=== PATIENT | male | born 1945 | race Caucasian/White ===

== ENCOUNTER → 2020-12-08 14:50 | Outpatient (CLI) | payer MEDICARE, SELFPAY ==
--- NOTE | ~2020-12-08 | XR_ITS ---
EXAMINATION: XR hip LT min 2V INDICATION: Left hip pain TECHNIQUE: Two views of the left hip are obtained. COMPARISON: None available FINDINGS: Bone alignment is normal. There is no fracture. There is severe osteoarthritis of the left hip. The soft tissues are unremarkable. IMPRESSION: 1. Advanced osteoarthritis without acute osseous abnormality. Reviewed, dictated and finalized at location A.
== END ==
PROVIDERS: PCP Internal Medicine; Visit Provider Nurse Practitioner
DX: M16.12 Unilateral primary osteoarthritis, left hip (principal)
CPT/HCPCS: 73502

== ENCOUNTER 2021-04-22 06:39 | Outpatient (CLI) | payer MEDICARE, SELFPAY ==
--- NOTE | 2021-04-22 | ECG_ITS ---
Measurements Intervals [place] Rate: 69 P: 60 NE: 188 QRS: 16 QRSD: 99 T: 40 QT: 389 QTc: 417 Interpretive Statements SINUS RHYTHM INCOMPLETE RIGHT BUNDLE BRANCH BLOCK BORDERLINE ECG Electronically Signed On 04-22-2021 8:15:59 SECTION HAND HELPER by Dale Pandey D.O.
[2021-04-22 08:42] LABS: Albumin Level 4.4 g/dL (3.5-5.1); Estimated Glomerular Filt Rate > 60; Glucose 87 mg/dL (65-110)
[2021-04-22 08:43] LABS: Hematocrit 42.5 % (42.0-52.0); Hemoglobin 14.8 g/dL (14.0-18.0)
== END 2021-04-22 06:40 | disposition home or self-care (01) ==
LOC: ANHLAB 06:50
PROVIDERS: PCP Internal Medicine; Visit Provider Orthopaedic Surgery
DX: Z01.818 Encounter for other preprocedural examination (principal); M16.12 Unilateral primary osteoarthritis, left hip
CPT/HCPCS: 36415; 82040; 82565; 82947; 85014; 85018; 93005

== ENCOUNTER 2021-05-04 10:00 | Outpatient (CLI) | payer MEDICARE, SELFPAY ==
[2021-05-04 11:55] LABS: Basophils Percent Auto 0.3 % (0.2-1.2); Eosinophils Absolute Auto 0.1 K/mm3 (0-0.3); Eosinophils Percent Auto 0.5 % (0-4.4); Hematocrit 41.8 % (42.0-52.0); Hemoglobin 14.2 g/dL (14.0-18.0); Immature Granulocyte Absolute 0.05 K/mm3 (0.00-0.031); Immature Granulocyte Percent A 0.5 % (0-0.5); Lymphocytes Absolute Auto 1.19 K/mm3 (0.9-3.2); Mean Corpuscular Volume 91.3 fl (80-100); Monocytes Absolute Auto 0.8 K/mm3 (0.1-0.6); Monocytes Percent Auto 8.3 % (2.6-8.5); Neutrophils Absolute Auto 7.1 K/mm3 (1.3-6.7); Neutrophils Percent Auto 77.4 % (45.5-73.1); Platelet Count Result 192 k/mm3 (150-375); Red Blood Count 4.58 M/mm3 (4.6-6.20); Red Cell Distribution Width 13.3 % (11.5-14.5); White Blood Count 9.2 K/mm3 (4.5-10.0)
[2021-05-04 12:02] LABS: Urine Cotinine NEGATIVE
== END 2021-05-04 10:01 | disposition home or self-care (01) ==
PROVIDERS: PCP Internal Medicine; Visit Provider Orthopaedic Surgery
DX: Z01.818 Encounter for other preprocedural examination (principal); M16.12 Unilateral primary osteoarthritis, left hip
CPT/HCPCS: 80307; 83036; 85025; 87081

== ENCOUNTER 2021-05-31 01:14 | Day surgery (SDC) | payer MEDICARE, SELFPAY ==
[2021-05-04 10:16] VITALS: BP 157/73; PULSE 80; RESP 18; TEMP 37.8; O2SAT 99; BMI 25.0
--- NOTE | 2021-05-04 10:35 | PC.NURSE ---
Report to the Outpatient Waiting Room, entrance under the green pavilion located off [facility], at time __8:00AM on date __05/31/21 . OR Time: __10:00AM . - You and your visitor will be asked a series of questions to screen for COVID 19 for your protection. - A mask is required within the hospital. - Only one visitor is allowed at this time. Patient visitors will be guided where to wait when not with patient. Preoperative COVID Testing Requirements: No COVID Test needed if: (proof is required; if not received patient will have Rapid Test prior to entry) - Patient has received COVID Vaccine at least 14 days prior to procedure date or - Patient has positive COVID test result within last 90 days of surgery date. COVID Test needed if above criteria is not met If not COVID vaccinated a COVID test must be conducted within 72 hours of surgery and patient is asked to isolate self from time of testing until procedure. You will go to the [facility] for your COVID testing. The [facility] Testing site is located at the corner of [address] [facility]. You will only be called if COVID results are positive and your surgeon may reschedule your elective surgery date. Patients may have clear liquids (water, carbonated beverages, clear teas, apple juice) until 3 hours prior to surgery with a maximum of 20 ounces. - No food from midnight until time of surgery - Infants may have breast milk until 4 hours before surgery, infant formula 6 hours prior to surgery. - Children will be allowed to drink immediately following surgery. If applicable, please bring a bottle or sippy cup to assist with drinking. Juice, water, soda, and popsicles are readily available. For infants on formula, please bring formula the day of surgery. Pacifiers are allowed. Take the following medications with a SIP of water the morning of surgery: __LORAZEPAM NEEDED Medications to discontinue per physician ALL VITAMINS/SUPPLEMENTS 3 DAYS PRE-OP Date to take last dose__05/27/21 Please no make-up, nail icelandic, hairspray, perfume, deodorant, or body powder the day of surgery. No jewelry (including any body piercings) or valuables the day of surgery, leave them at home. Please take a shower or bath the night before, or the morning of, surgery with an antibacterial soap. Wear comfortable, loose fitting clothing. Children are encouraged to wear pajamas. - Jewelry must be removed prior to entering the operating room. Rings and piercings that are not removed may be cut off. - The hospital will not accept responsibility for valuables. - Please leave all valuables, including medications, at home the day of surgery. If you are going home after surgery, a licensed deliver driver must drive you home. - NO public transportation without another adult. - We recommend that an adult stay with you for 24 hours following discharge. - We also recommend that you do not drive, make important decision, drink alcoholic beverages, or take any drugs that were not prescribed by your health care provider for at least 24 hours after your discharge time. For Pediatric surgeries, we recommend two adults accompany the child home (only one inside the building at this time). Follow any additional instructions given to you from your surgeon. Telephone instructions given to __PATIENT Patient advised to call surgeon office or pre surgery nurse liaison [phone] if any additional questions.
[2021-05-31] VITALS (9 sets, daily range): BP systolic 118–152; BP diastolic 52–97; PULSE 65–82; RESP 14–17; TEMP 36.1–36.8; O2SAT 99–100
--- NOTE | ~2021-05-31 | XR_ITS ---
EXAMINATION: XR hip LT min 2V DATE: 05/31/2021 13:35 INDICATION: Postoperative evaluation following left total hip arthroplasty TECHNIQUE: Anteroposterior and lateral views of the left hip were obtained. COMPARISON: 05/25/2021 FINDINGS: Interval placement of a noncemented left total hip arthroplasty which appears well seated in near benedicto tomic alignment.Acetabular component is affixed with a single screw. Expected subcutaneous gas in the postoperative bed. No fractures identified. Moderate left sacroiliac osteoarthritis. At least moder ate lower lumbar spondylosis. IMPRESSION: 1. Left total hip arthroplasty, negative for postoperative purposes. Reviewed, dictated and finalized at location A. 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
--- NOTE | 2021-05-31 07:26 | WPDHPUPDATE1 ---
History and Physical Update Update Date/Time: 05/31/21 07:26 History and Physical has been reviewed, including an updated exam of the patient. There are NO changes in the patient's condition. Risks, benefits, and alternatives have been discussed and questions answered. Patient agrees to proceed with procedure.
--- NOTE | 2021-05-31 09:05 | WPDANESEPPF ---
Anes - Initial Pre Proc Eval Procedure: Operation Date: 05/31/21 10:30 Proposed Procedures p Left Total Hip Arthroplasty - Lei Ramirez MD Date/Time: 05/31/21 09:05 Surgeon: Lei Ramirez MD Pre Op Diagnosis: primary OA left hip Patient Data Age: 75 Gender: M Height: 1.79 m Weight: 80.2 kg Last Vital Signs Temp 100.0 F H 05/04/21 10:16 Pulse 80 05/04/21 10:16 Resp 18 05/04/21 10:16 BP 157/73 H 05/04/21 10:16 Pulse Ox 99 05/04/21 10:16 Allergies Allergy/AdvReac Type Severity Reaction Status Date / Time No Known Allergies Allergy Verified 05/31/21 08:58 Home Medications Medication Instructions Recorded Confirmed Type finasteride 5 mg tablet 5 mg PO DAILY 12/07/20 05/31/21 History tadalafil 5 mg tablet 5 mg PO DAILY 12/07/20 05/31/21 History omega 6-ipt-tsh-fish oil [Fish Oil] 1 cap PO DAILY 05/04/21 05/31/21 History lorazepam 1 mg tablet 0.5 mg PO ONCE PRN #10 tablet 05/25/21 05/31/21 Rx Patient hx anesthesia problems: none Family hx anesthesia problems: none Results Review: All pre-operative results and documents have been reviewed as part of the pre-operative evaluation. [facility] Past Medical History Medical History H/O nephrolithotomy with removal of calculi Hyperlipidemia Prostatic hypertrophy Family History Family History Sibling Family history of thyroid disease Patient's sister is in good health Patient's brother is in good health Father Family history of coronary artery disease Family history of cardiovascular disease Mother Patient's mother is Social History Social History Smoking status: Never smoker Alcohol intake: current Alcohol use details: one per month Substance use: never Substance use type: does not use Living arrangements: with family Additional living arrangements comments: [facility]SE Spiritual care concerns: No Anes - Eval Final PreProcedure Day of Procedure 05/31/21 09:05 Patient weight: overweight Heart: regular rate and rhythm Lungs: clear to auscultation Airway: Mallampati scale class III Neurological: alert and oriented Last oral intake: >/= 8 hours ASA classification: III Emergent: no Anesthetic plan: proceed Anesthesia type and monitoring: general ETT and standard monitoring Results Review: All pre-operative results and documents have been reviewed as part of the pre-operative evaluation. Informed Consent: The patient's anesthetic plan and its attendant risks and benefits were discussed with the patient/family/POA. Questions were solicited and answers provided to the satisfaction of the patient/family/POA.
[2021-05-31] MEDS: ACETAMINOPHEN 500 MG TABLET 1000 MG PO (09:06)
[2021-05-31] MEDS: LACTATED RINGERS 1,000 ML 30 ML IV CONT ×2 (09:16→13:18)
[2021-05-31] MEDS: TRANEXAMIC ACID 1,000MG/ISO100 1,000 MG/100 ML BAG 200 MG IVPB (09:57)
[2021-05-31] MEDS: ceFAZolin 2 GM/D5W 50 ML 2 GM/50 ML BAG IVPB (10:52)
--- NOTE | 2021-05-31 14:54 | ADMGEN ---
This patient, Reyes Pineda, was admitted to [facility]. Patient/family oriented to hospital policies and general routines including ID bracelet, bed and alarms, visiting hours, pain management, procedures, bathroom and other care routines, personal items, smoking policy, room service/diet, and visiting hours. Information on how to activate the Rapid Response Team has been discussed. Patient/Family are encouraged to report perceived risks to care and to ask questions if they do not understand what they are told or what they should do.
[2021-05-31] MEDS: ONDANSETRON INJ 4 MG/2 ML VIAL IV PUSH ×3 (15:19→23:59)
--- NOTE | 2021-05-31 15:51 | W.PM.PROC2 ---
Procedure Note - Detailed Date of Procedure 05/31/21 Pre-op Diagnosis Primary OA left hip Post-op Diagnosis same Procedure Performed Left Total Hip Arthroplasty Surgeon Lei Ramirez MD Diesel Crane Operator Aspen Granados PA-C Anesthesia general Findings Excellent bone quality. Valgus neck angle with high anteversion. [place] acetabulum shallow with low anteversion. Posterior superior cup left uncovered. Excellent press fit obtained. Additional screw placed. Inferior cup margin parallel and just medial to transverse acetabular ligament. Description of Procedure The patient was given preoperative antibiotics. A general anesthetic was administered. The patient was carefully placed in the lateral decubitus position on the PEG board. The shoulders and hips were carefully positioned for component and leg length positioning reference. The hip was prepped and draped in the usual sterile fashion. A longitudinal incision was created over the posterior aspect of the greater trochanter. Careful dissection was brought down through the deep fascia with electrocautery. A minimally invasive optimized posterior approach to the hip was performed. The short external rotators and capsule were taken down in an L-shaped capsulotomy. The tissue was tagged for later repair using number 2 high strength suture. The femoral neck was measured and taken in situ. The femoral head was removed. The acetabulum was carefully exposed. The inferior capsule was released. The labrum was resected. The acetabulum was sequentially reamed to the intended cup size. The cup was impacted into position with excellent press-fit. Typical anatomic landmarks, including the bony contact points as well as the inferior transverse acetabular ligament were used to confirm cup positioning with preoperative templating. Attention was turned to the femur, which was carefully exposed. The hip was reamed and then broached sequentially. Excellent press-fit was obtained with the broach. The hip was trialed. Measurements were utilized, including the lesser trochanter as well as the center of the femoral head and the tip of the trochanter, and excellent assessment of the offset and leg lengths were confirmed. The real component was impacted into position. Trialing confirmed appropriate leg length and offset with soft tissue balancing as well apparent feel of the leg, both at the knee and the heel. Soft tissues were assessed using the the iliotibial band. Reduction of the posterior capsule and external rotators were also used as a secondary assessment. The hip was copiously irrigated with pulsatile lavage antibiotic solution periodically throughout the procedure. The real components were then assembled and reduced. The hip was stable throughout typical maneuvers, including extension, external rotation to 70 degrees, the position of sleep as well as flexion to 90 degrees with internal rotation past 45 degrees. The shake test confirmed stability without impingement. Osteophytes were removed as necessary. The short external rotators and capsule were repaired back to the posterior trochanter through drill holes. The deep fascia was repaired with running number 2 Quill suture, followed by 0 Stratafix suture and 2-0 Stratafix suture in the dermis. Steri-Strips were placed on the skin, followed by a sterile silver occlusive dressing. There were no complications. Meticulous hemostasis was maintained with the AquaMantys device. The patient was brought to the recovery room in stable condition. There were no complications. Implants The Accolade II hip stem, 132 degree size 4 , was utilized with excellent press-fit. The 52 mm Trident II acetabular component was impacted with excellent press-fit stability. The +2.5 , 36 mm Biolox ceramic femoral head was utilized. Estimated Blood Loss -300.0 Drains No Packing No Pathology none sent Complications No immediate complications Condition stable Disposition PACU
[2021-05-31] MEDS: FAMOTIDINE 20 MG TABLET PO (20:37)
[2021-05-31] MEDS: SODIUM CHLORIDE 0.9% IV 1,000 ML 125 ML IV CONT (20:37)
[2021-06-01] VITALS: BP 120/55; PULSE 75; RESP 15; TEMP 36.6; O2SAT 100
[2021-06-01] MEDS: oxyCODONE HCL (*CRX) 5 MG TAB IR PO (01:45)
[2021-06-01 04:24] VITALS: TEMP 36.6
[2021-06-01 05:36] LABS: Glucose Point of Care 141 mg/dl (65-105)
--- NOTE | 2021-06-01 05:51 | PC.NURSE ---
Patient transferred to chair with no complications at approximately 0520 After approximately 6 minutes this RN checked on patient to see how he was tolerating ambulation and sitting. He began slurring words and lose his color. He then stated this is what i felt like after i had my stones removed under anesthesia, i think i may pass out Patient then went unresponsive but remained in chair. Rapid Response called by this RN who stayed with the patient and obtained vitals. Initial vitals at 0528 shows a BP- 59/35 and a HR of 45. He became responsive after only 10 seconds. oil field equipment mechanic supervisor and assisting RNs returned patient to bed via 3 person assist and gait belt. ICU Charge arrived and began 500ml NS bolus. 0535- BP- 95/47 HR-50 SPO2- 100% 0539- BP-102/47 HR- 63 SPO2%- 100% Vitals continue trending improvement. Dr. Ramirez notified @ 0545 Agrees with 500 ml bolus of NS, obtain BMP & CBC, Continue to monitor closely in current bed placement vs transferring to telemetry unit.
[2021-06-01 06:01] LABS: Basophils Percent Auto 0.1 % (0.2-1.2); Hematocrit 32.2 % (42.0-52.0); Hemoglobin 11.4 g/dL (14.0-18.0); Immature Granulocyte Absolute 0.06 K/mm3 (0.00-0.031); Immature Granulocyte Percent A 0.4 % (0-0.5); Lymphocytes Absolute Auto 1.26 K/mm3 (0.9-3.2); Mean Corpuscular HGB Conc 35.4 g/dl (32-36); Mean Corpuscular Hemoglobin 31.5 pg (26-34); Mean Platelet Volume 8.9 fl (7.4-10.4); Monocytes Absolute Auto 1.6 K/mm3 (0.1-0.6); Monocytes Percent Auto 11.3 % (2.6-8.5); Neutrophils Absolute Auto 11.1 K/mm3 (1.3-6.7); Neutrophils Percent Auto 79.2 % (45.5-73.1); Platelet Count Result 177 k/mm3 (150-375); Red Blood Count 3.62 M/mm3 (4.6-6.20); Red Cell Distribution Width 12.9 % (11.5-14.5)
[2021-06-01 06:11] VITALS: BP 111/44; PULSE 73; RESP 17; TEMP 36.5; O2SAT 100
[2021-06-01 06:19] LABS: Anion Gap 8 mmol/L (8-16); Blood Urea Nitrogen 13 mg/dL (9-20); Calcium 7.7 mg/dL (8.4-10.2); Carbon Dioxide 23 mmol/L (22-30); Chloride 100 mmol/L (98-107); Estimated CRCL calculation 71 ml/min; Estimated Glomerular Filt Rate > 60; Glucose 131 mg/dL (65-110); Magnesium 1.6 mg/dL (1.6-2.3); Potassium 3.5 mmol/L (3.4-5.0); Sodium 131 mmol/L (137-145)
[2021-06-01] MEDS: ONDANSETRON INJ 4 MG/2 ML VIAL IV PUSH ×2 (06:45→11:37)
[2021-06-01] MEDS: FAMOTIDINE 20 MG TABLET PO (10:02)
[2021-06-01] MEDS: polyethylene glycoL 3350 17 GM POWD.PACK PO (10:03)
[2021-06-01] MEDS: OMEGA 3 POLYUNSAT FATTY ACIDS 1 GM CAP PO (10:03)
[2021-06-01 10:07] VITALS: BP 111/52; PULSE 70; RESP 14; TEMP 36.6; O2SAT 100
[2021-06-01] MEDS: SENNA/DOCUSATE SODIUM TABLET 2 TAB PO (11:12)
[2021-06-01 12:20] VITALS: BP 124/53
--- NOTE | 2021-06-01 12:20 | WPDANESPN ---
Anes - Prog Note Post-Op Date/Time: 06/01/21 12:20 Cardiovascular status: normal Respiratory status: normal Airway patency: baseline Mental status: baseline Post-Op hydration status: normal Vital Signs: Last Vital Signs Temp 97.9 F 06/01/21 10:07 Pulse 70 06/01/21 10:07 Resp 14 06/01/21 10:07 BP 111/52 L 06/01/21 10:07 Pulse Ox 100 06/01/21 10:07 Pain Score (VAS): 05/23 I/O: Intake & Output 05/31/21 06/01/21 06/01/21 23:59 07:59 15:59 Intake Total 200 100 Output Total 700 Balance 200 -600 Laboratory Tests 06/01/21 05:53 06/01/21 05:53 06/01/21 06/01/21 06/01/21 05:33 05:53 05:53 WBC 14.0 H RBC 3.62 L Hgb 11.4 L Hct 32.2 L MCV 89.0 MCH 31.5 MCHC 35.4 RDW 12.9 Plt Count 177 MPV 8.9 Immature Gran % (Auto) 0.4 Neut % (Auto) 79.2 H Lymph % (Auto) 9.0 L [place] % (Auto) 11.3 H Eos % (Auto) 0.0 Baso % (Auto) 0.1 L Lymph # (Auto) 1.26 [place] # (Auto) 1.6 H Eos # (Auto) 0.0 Baso # (Auto) 0.0 Abs Immat Gran (auto) 0.06 H Absolute Neuts (auto) 11.1 H Absolute Nucleated RBC 0.0 Nucleated RBC % 0.0 Sodium 131 L Potassium 3.5 Chloride 100 Carbon Dioxide 23 Anion Gap 8 BUN 13 Creatinine 0.80 Estim Creat Clear Calc 71 Estimated GFR > 60 Glucose 131 H POC Capillary Glucose 141 H Calcium 7.7 L Magnesium 1.6 Post-procedural complaints: none Patient Feedback: Patient satisfied with anesthetic care.
[2021-06-01] MEDS: FINASTERIDE 5 MG TABLET PO (12:25)
--- NOTE | 2021-06-01 12:47 | PC.NURSE ---
PER RAFAELA BETANCOURT PATIENT IS OK TO DISCHARGE WITHOUT URINATING. PATIENT IS FAMILIAR WITH URINARY RETENTION HE SEES A UROLOGIST AND HAS CATHETERS AT HOME.
--- NOTE | 2021-06-01 12:57 | PM.DS ---
DS: Admitting Diagnosis Discharge Date 06/01/21 Admitting Diagnosis OA Left hip DS: Discharge Diagnosis Discharge Diagnosis (1) Status post total hip replacement, left: Code(s): Z96.642 - Presence of left artificial hip joint Status: Acute Assessment and Plan: Postop day 1: Total hip arthroplasty. Patient tolerated procedure well. No complications. Did have a syncopal episode. This has resolved. He has an ongoing problem with urinary retention. [place] catheter was used during the procedure and was removed this am. He has catheters at home if he is unable to urinate and he will call his urologist. Pain manageable with pain medication. No numbness or tingling. We had a lengthy discussion regarding postoperative wound care, limitations, expectations, and exercises. Patient shows good understanding. Patient has had initial physical therapy and is tolerating it well. DVT prophylaxis: 81 mg baby aspirin b.i.d. for 14 days. Short frequent walks. Pain medication: Percocet. Meloxicam. Prednisone. Patient has followup appointment with Dr. Ramirez in 3 weeks DS: Summary Hospital Course Reason for hospitalization: Total hip arthroplasty Hospital Course: Patient tolerated procedure well. Has had initial PT/OT. Status at Discharge Functional status at discharge: uses cane/walker Overall status at discharge: patient is progressing back to baseline Time Spent with Patient Time attestation: Total time spent providing and/or coordinating discharge services: Exam Narrative: Thin, tall Male. Resting comfortably in chair. Wearing compression socks bilaterally. Dressing dry and intact with no drainage. Moderate swelling. No ecchymosis. No erythema. No hematoma. Range of motion limited due to pain. Calf nontender. Thigh nontender. Neurologic status intact. No varicosities. Distal pulses palpable. DS: Data Data Completed and Pending Labs on day of discharge: Labs from last 24 hours 06/01/21 06/01/21 06/01/21 05:53 05:53 05:33 WBC 14.0 H RBC 3.62 L Hgb 11.4 L Hct 32.2 L MCV 89.0 MCH 31.5 MCHC 35.4 RDW 12.9 Plt Count 177 MPV 8.9 Immature Gran % (Auto) 0.4 Neut % (Auto) 79.2 H Lymph % (Auto) 9.0 L [place] % (Auto) 11.3 H Eos % (Auto) 0.0 Baso % (Auto) 0.1 L Lymph # (Auto) 1.26 [place] # (Auto) 1.6 H Eos # (Auto) 0.0 Baso # (Auto) 0.0 Abs Immat Gran (auto) 0.06 H Absolute Neuts (auto) 11.1 H Absolute Nucleated RBC 0.0 Nucleated RBC % 0.0 Sodium 131 L Potassium 3.5 Chloride 100 Carbon Dioxide 23 Anion Gap 8 BUN 13 Creatinine 0.80 Estim Creat Clear Calc 71 Estimated GFR > 60 Glucose 131 H POC Capillary Glucose 141 H Calcium 7.7 L Magnesium 1.6 Discharge Plan Discharge Patient Disposition: Home, Self-Care Discharge Instructions: See green instruction sheet Stand Alone Forms: General Discharge Instructions Follow-up/Referrals: Aspen Granados PA [Physician Manager Income Tax] - Discharge Medications: New meloxicam 7.5 mg tablet 7.5 mg PO BID 30 Days Qty: 60 RF: 0 prednisone 5 mg tablet 5 mg PO DAILY 21 Days Qty: 21 RF: 0 aspirin 81 mg tablet,delayed release (DR/EC) 81 mg PO BID 14 Days Qty: 28 RF: 0 oxycodone-acetaminophen 5-325 mg tablet 1 - 2 tablet PO Q4-6H MDD 6 PRN (Reason: pain) Qty: 30 RF: 0 Continued tadalafil [Cialis] 5 mg tablet 5 mg PO DAILY RF: 0 finasteride 5 mg tablet 5 mg PO DAILY RF: 0 lorazepam [Ativan] 1 mg tablet 0.5 mg PO ONCE PRN (Reason: anxiety) Qty: 10 RF: 0 omega 1-qup-pyi-fish oil [Fish Oil] 1,000 mg (120 mg-180 mg) Capsule 1 cap PO DAILY RF: 0
== END 2021-06-01 15:30 | disposition home or self-care (01) ==
LOC: ANHSURGERY 13:24 → ANHSUROVER 14:16
PROVIDERS: PCP Internal Medicine; Visit Provider Orthopaedic Surgery
PROC: (CPT 27130; principal; 2021-05-31 10:30)
DX: M16.12 Unilateral primary osteoarthritis, left hip (principal); E78.5 Hyperlipidemia, unspecified; N40.0 Benign prostatic hyperplasia without lower urinary tract symptoms
CPT/HCPCS: 27130; 36415; 73502; 80048; 80307; 82948; 83036; 83735; 85025; 86850; 86900; 86901; 87081; 97110; 97116; 97161; 97165; 97530; 97535; A9270; C1776; J0131; J0171; J0690; J1100; J1885; J2250; J2270; J2405; J2704; J2710; J2795; J3010; J7030; J7120

== ENCOUNTER 2021-06-22 15:05 | Outpatient (CLI) | payer MEDICARE, SELFPAY ==
--- NOTE | ~2021-06-22 | US_ITS ---
US venous doppler [facility] DATE: 06/22/2021 15:45 INDICATION: Pain and swelling of left leg TECHNIQUE: Real-time and color flow imaging and Doppler analysis of the veins of the left lower extre mity COMPARISON: None FINDINGS: There is spontaneous and phasic flow and normal augmentation and color flow signal and norm al compression of the deep veins of the left lower extremity. The left greater saphenous vein is boone nt. IMPRESSION: No evidence of deep venous thrombosis of the left leg Reviewed, dictated and finalized at Location A. Reviewed, dictated and finalized at location A. ER
== END 2021-06-22 15:06 | disposition home or self-care (01) ==
PROVIDERS: PCP Internal Medicine; Visit Provider Physician Assistant Surgical
DX: M79.89 Other specified soft tissue disorders (principal)
CPT/HCPCS: 93971

== ENCOUNTER → 2022-07-28 08:43 | Outpatient (CLI) | payer MEDICARE, SELFPAY ==
--- NOTE | ~2022-07-28 | XR_ITS ---
Supine and upright views of the abdomen Clinical history: Microscopic hematuria Findings: Bowel gas pattern is nonspecific. No evidence for obstruction or free air. No abnormal mass lesion or calcification is seen. Left hip arthroplasty noted. Impression: No definite renal stone identified. Reviewed, dictated and finalized at [facility]. Impression: No definite renal stone identified.
--- NOTE | ~2022-07-28 | CT_ITS ---
CT of the Abdomen and Pelvis: Indication: Microscopic hematuria Technique: 2.5 mm axial scans were obtained through the abdomen and pelvis prior to and following in travenous administration of 130 cc of Omnipaque 350. Dose reduction technique was used on this scan b y utilizing automated exposure control and iterative reconstruction technique. The dose-length produc t (DLP) was 1573.60 mGy-cm. Findings: Scans through the lung bases are unremarkable. The liver, spleen, pancreas, gallbladder, and adrenal glands are within normal limits. There is mild bilateral hydroureteronephrosis. No evidence of aortic aneurysm. Multiple shotty central mesenteric l ymph nodes are present with minimal haziness in the central mesentery. There are also several mildly prominent posterior para-aortic lymph nodes measuring up to 15 mm in short axis (series 6 image 46 fo r example). No bowel obstruction or bowel wall thickening. There is no evidence to suggest acute appendicitis. Images through the pelvis were performed. Urinary bladder is markedly distended. No definite wall thi ckening or mass lesion identified. Prostate gland and seminal vesicles are unremarkable. No ascites. Impression: Mild bilateral hydroureteronephrosis, probably related to markedly distended urinary bladder. Correla te for bladder outlet obstruction or urinary retention. No definite abnormal mass lesion identified. Mildly prominent central mesenteric and para-aortic lymph nodes. Findings could reflect mesenteric pa nniculitis. Correlate for any possibility of lymphoma or other metastatic disease. Reviewed, dictated and finalized at [facility]. Impression: Mild bilateral hydroureteronephrosis, probably related to markedly distended ur inary bladder. Correlate for bladder outlet obstruction or urinary retention. N o definite abnormal mass lesion identified. Mildly prominent central mesenteric and para-aortic lymph nodes. Findings could reflect mesenteric panniculitis. Correlate for any possibility of lymphoma or other metastatic disease.
[2022-07-28 09:15] LABS: Estimated Glomerular Filt Rate > 60
== END ==
PROVIDERS: PCP Internal Medicine; Visit Provider Nurse Practitioner Adult Health
DX: R31.29 Other microscopic hematuria (principal); N13.30 Unspecified hydronephrosis
CPT/HCPCS: 74018; 74178; Q9967

== ENCOUNTER 2022-08-08 13:57 | Outpatient (CLI) | payer MEDICARE, SELFPAY ==
[2022-08-08 14:46] LABS: Basophils Percent Auto 0.3 % (0.2-1.2); Eosinophils Percent Auto 0.4 % (0-4.4); Hematocrit 43.4 % (42.0-52.0); Hemoglobin 14.7 g/dL (14.0-18.0); Immature Granulocyte Absolute 0.05 K/mm3 (0.00-0.031); Immature Granulocyte Percent A 0.5 % (0-0.5); Immature Platelet Fraction Pct 4.3 % (0.9-11.2); Lymphocytes Percent Auto 10.9 % (18.3-44.2); Mean Corpuscular HGB Conc 33.9 g/dl (32-36); Mean Corpuscular Volume 91.6 fl (80-100); Mean Platelet Volume 10.5 fl (7.4-10.4); Monocytes Absolute Auto 0.6 K/mm3 (0.1-0.6); Neutrophils Absolute Auto 8.2 K/mm3 (1.3-6.7); Neutrophils Percent Auto 81.9 % (45.5-73.1); Platelet Count Result 219 k/mm3 (150-375); Red Blood Count 4.74 M/mm3 (4.6-6.20); Red Cell Distribution Width 13.5 % (11.5-14.5); White Blood Count 10.1 K/mm3 (4.5-10.0)
[2022-08-08 15:08] LABS: Alanine Aminotransferase 22 U/L (6-50); Albumin Level 4.8 g/dL (3.5-5.1); Alkaline Phosphatase 70 U/L (38-126); Anion Gap 8 mmol/L (8-16); Aspartate Amino Transferase 35 U/L (17-59); Bilirubin,Total 0.7 mg/dL (0.2-1.3); Blood Urea Nitrogen 12 mg/dL (9-20); Calcium 8.9 mg/dL (8.4-10.2); Carbon Dioxide 31 mmol/L (22-30); Chloride 106 mmol/L (98-107); Estimated Glomerular Filt Rate > 60; Glucose 93 mg/dL (65-110); Potassium 4.1 mmol/L (3.4-5.0); Sodium 145 mmol/L (137-145)
[2022-08-08 15:30] LABS: HIV 1/2 Ab P24 Ag Result Negative (Negative)
[2022-08-08 15:40] LABS: Erythrocyte Sedimentation Rate 6 mm/hr (0-20)
== END 2022-08-08 13:58 | disposition home or self-care (01) ==
PROVIDERS: PCP Internal Medicine; Visit Provider Nurse Practitioner Family
DX: E78.5 Hyperlipidemia, unspecified (principal); R59.9 Enlarged lymph nodes, unspecified; Z11.4 Encounter for screening for human immunodeficiency virus [HIV]
CPT/HCPCS: 36415; 80053; 85025; 85055; 85652; 86703; G0432

== ENCOUNTER 2022-08-15 15:21 | Outpatient (CLI) | payer MEDICARE, SELFPAY ==
[2022-08-15 15:38] LABS: Basophils Percent Auto 0.3 % (0.2-1.2); Eosinophils Percent Auto 0.3 % (0-4.4); Hematocrit 41.7 % (42.0-52.0); Hemoglobin 14.3 g/dL (14.0-18.0); Immature Granulocyte Absolute 0.03 K/mm3 (0.00-0.031); Immature Granulocyte Percent A 0.3 % (0-0.5); Lymphocytes Absolute Auto 1.57 K/mm3 (0.9-3.2); Lymphocytes Percent Auto 14.9 % (18.3-44.2); Mean Corpuscular HGB Conc 34.3 g/dl (32-36); Mean Corpuscular Hemoglobin 31.1 pg (26-34); Mean Corpuscular Volume 90.7 fl (80-100); Mean Platelet Volume 8.9 fl (7.4-10.4); Monocytes Absolute Auto 0.8 K/mm3 (0.1-0.6); Monocytes Percent Auto 7.8 % (2.6-8.5); Neutrophils Absolute Auto 8.1 K/mm3 (1.3-6.7); Neutrophils Percent Auto 76.4 % (45.5-73.1); Platelet Count Result 240 k/mm3 (150-375); Red Cell Distribution Width 13.7 % (11.5-14.5); White Blood Count 10.6 K/mm3 (4.5-10.0)
[2022-08-15 16:53] LABS: Erythrocyte Sedimentation Rate 8 mm/hr (0-20)
[2022-08-15 17:10] LABS: Alanine Aminotransferase 21 U/L (6-50); Albumin Level 4.6 g/dL (3.5-5.1); Alkaline Phosphatase 76 U/L (38-126); Anion Gap 6 mmol/L (8-16); Aspartate Amino Transferase 25 U/L (17-59); Bilirubin,Total 0.6 mg/dL (0.2-1.3); Blood Urea Nitrogen 17 mg/dL (9-20); CRP < 0.5 mg/dL (<1.0); Calcium 9.1 mg/dL (8.4-10.2); Carbon Dioxide 32 mmol/L (22-30); Chloride 104 mmol/L (98-107); Estimated Glomerular Filt Rate > 60; Glucose 106 mg/dL (65-110); Lactate Dehydrogenase 109 U/L (120-246); Potassium 3.6 mmol/L (3.4-5.0); Sodium 142 mmol/L (137-145)
== END 2022-08-15 15:22 | disposition home or self-care (01) ==
LOC: ANHLAB 15:24
PROVIDERS: PCP Internal Medicine; Visit Provider Internal Medicine Hematology & Oncology
DX: R59.1 Generalized enlarged lymph nodes (principal)
CPT/HCPCS: 36415; 80053; 83615; 85025; 85652; 86140; 88184

== ENCOUNTER → 2023-01-01 08:10 | Outpatient (CLI) | payer MEDICARE, SELFPAY ==
--- NOTE | ~2023-01-01 | CT_ITS ---
EXAMINATION: CT abdomen pelvis w con INDICATION: Lymphadenopathy TECHNIQUE: Computed tomographic images of the abdomen and pelvis were obtained after the administrati on of 100 cc of Omnipaque 350 intravenous contrast. The dose-length product (DLP) was 855.49 mGy-cm. Automated exposure control and iterative reconstruction technique were employed. COMPARISON: 07/28/2022 FINDINGS: Minimal dependent atelectasis is present in the lung bases. The heart size is normal. Bilat eral gynecomastia is noted. There is a 9 mm cyst of the left hepatic lobe. The spleen, pancreas, gall bladder, and adrenal glands are normal. The left kidney is unremarkable. A 4 mm hypoattenuating lesio n of the right kidney is too small to characterize but likely represents a cyst. Again noted are mult iple mildly enlarged mesenteric and periaortic lymph nodes without significant change. There is circu mferential wall thickening of the urinary bladder. Changes of left hip arthroplasty are noted. No columba e intraperitoneal gas or evidence of bowel obstruction. There is severe lumbar spondylosis. The appen gregory is mildly dilated but without periappendiceal inflammatory change. IMPRESSION: 1. Multiple mildly enlarged mesenteric and periaortic lymph nodes without significant change. Differe ntial is as previously discussed including reactive lymphadenopathy, lymphoma, or other metastatic di sease. 2. Mildly dilated appendix without periappendiceal inflammatory change. Recommend correlation for rig ht lower quadrant tenderness and possibly early acute appendicitis. 3. Circumferential wall thickening of the urinary bladder which could reflect cystitis or chronic out let obstruction. Reviewed, dictated and finalized at location A. IMPRESSION: 1. Multiple mildly enlarged mesenteric and periaortic lymph nodes without signi ficant change. Differential is as previously discussed including reactive lymph adenopathy, lymphoma, or other metastatic disease. 2. Mildly dilated appendix without periappendiceal inflammatory change. Recomme nd correlation for right lower quadrant tenderness and possibly early acute grupo endicitis. 3. Circumferential wall thickening of the urinary bladder which could reflect c ystitis or chronic outlet obstruction.
[2023-01-01 08:42] LABS: Estimated Glomerular Filt Rate > 60
== END ==
PROVIDERS: PCP Nurse Practitioner; Referring Provider Urology; Visit Provider Internal Medicine Hematology & Oncology
DX: R59.1 Generalized enlarged lymph nodes (principal)
CPT/HCPCS: 74177; Q9967

== ENCOUNTER 2023-03-21 08:38 | Outpatient (CLI) | payer MEDICARE, SELFPAY ==
[2023-03-21 08:58] LABS: Hematocrit 44.4 % (42.0-52.0); Mean Corpuscular HGB Conc 33.8 g/dl (32-36); Mean Corpuscular Hemoglobin 30.7 pg (26-34); Mean Platelet Volume 8.8 fl (7.4-10.4); Platelet Count Result 205 k/mm3 (150-375); Red Blood Count 4.88 M/mm3 (4.6-6.20); Red Cell Distribution Width 13.5 % (11.5-14.5)
[2023-03-21 11:08] LABS: Alanine Aminotransferase 21 U/L (6-50); Albumin Level 4.7 g/dL (3.5-5.1); Alkaline Phosphatase 76 U/L (38-126); Anion Gap 7 mmol/L (8-16); Aspartate Amino Transferase 31 U/L (17-59); Bilirubin,Total 0.9 mg/dL (0.2-1.3); Blood Urea Nitrogen 15 mg/dL (9-20); Calcium 9.4 mg/dL (8.4-10.2); Carbon Dioxide 29 mmol/L (22-30); Chloride 103 mmol/L (98-107); Cholesterol 182 mg/dL (0-200); Estimated Glomerular Filt Rate > 60; Glucose 97 mg/dL (65-110); HDL Direct 49 mg/dL; Sodium 139 mmol/L (137-145); Triglycerides 198 mg/dL (<150)
[2023-03-21 11:19] LABS: LDL Cholesterol Direct 86 mg/dL
[2023-03-26 06:36] LABS: CRP, High Sensitivity 1.9 mg/L (***)
== END 2023-03-21 08:39 | disposition home or self-care (01) ==
LOC: ANHLAB 08:39
PROVIDERS: PCP Nurse Practitioner; Visit Provider Internal Medicine Hematology & Oncology
DX: E78.5 Hyperlipidemia, unspecified (principal); R59.0 Localized enlarged lymph nodes; Z79.899 Other long term (current) drug therapy
CPT/HCPCS: 36415; 80053; 80061; 84443; 85027; 86141

== ENCOUNTER → 2023-04-02 09:14 | Outpatient (CLI) | payer MEDICARE, SELFPAY ==
--- NOTE | ~2023-04-02 | CT_ITS ---
EXAMINATION: CT abdomen pelvis w con DATE: 04/02/2023 09:46 INDICATION: Localized enlarged lymph nodes. TECHNIQUE: Computed tomography (CT) of the abdomen and pelvis was performed with 100 mL Omnipaque 350 intravenous contrast. Automated exposure control and iterative reconstruction technique were employe d. The dose-length product was 854.27 mGy-cm. COMPARISON: CT abdomen and pelvis 11/01/2022, 07/28/2022, 08/02/13 FINDINGS: The visualized portions of the lung bases demonstrate mild atelectasis. No pleural effusion . The heart size is normal. No pericardial effusion. There is bilateral gynecomastia. There is 11 mm cyst in the liver. The gallbladder, spleen, pancreas, adrenal glands, and left kidney are normal. The re is a 7 mm cyst in right kidney. There are no dilated loops of bowel. The bladder is distended. The re are no dilated loops of bowel. The appendiceal diameter is 8 mm, decreased from 10 mm on 01/01/2023 , likely not clinically significant. There is mild mesenteric lymphadenopathy with the largest node m easuring 1.8 x 1.2 cm, stable from 07/28/22 and worsened from 08/02/13. There is a 2.1 x 1.5 cm left pa ra-aortic node that measured 1.4 x 1.0 cm on 01/01/23. There is no free intraperitoneal fluid. There i s a left inguinal hernia containing fat. There is a total left hip arthroplasty. There is severe lumb ar spondylosis. IMPRESSION: 1. Abdominal lymphadenopathy with enlargement of a left para-aortic node from 01/01/2023. These findin gs may be reactive lymphadenopathy, metastatic disease, or lymphoma. Reviewed, dictated and finalized at location E. TY HISTORIAN IMPRESSION: 1. Abdominal lymphadenopathy with enlargement of a left para-aortic node from . These findings may be reactive lymphadenopathy, metastatic disease, o r lymphoma.
[2023-04-02 09:33] LABS: Estimated Glomerular Filt Rate > 60
== END ==
PROVIDERS: PCP Surgery; Visit Provider Surgery
DX: R59.0 Localized enlarged lymph nodes (principal)
CPT/HCPCS: 74177; Q9967

== ENCOUNTER 2023-06-27 08:16 | Outpatient (CLI) | payer MEDICARE, SELFPAY ==
[2023-06-27 08:38] LABS: Basophils Percent Auto 0.4 % (0.2-1.2); Eosinophils Absolute Auto 0.1 K/mm3 (0-0.3); Eosinophils Percent Auto 1.8 % (0-4.4); Hematocrit 43.6 % (42.0-52.0); Hemoglobin 14.7 g/dL (14.0-18.0); Immature Granulocyte Absolute 0.03 K/mm3 (0.00-0.031); Immature Granulocyte Percent A 0.4 % (0-0.5); Immature Platelet Fraction Pct 2.5 % (0.9-11.2); Lymphocytes Percent Auto 17.5 % (18.3-44.2); Mean Corpuscular HGB Conc 33.7 g/dl (32-36); Mean Corpuscular Hemoglobin 30.8 pg (26-34); Mean Corpuscular Volume 91.2 fl (80-100); Mean Platelet Volume 9.2 fl (7.4-10.4); Monocytes Absolute Auto 0.7 K/mm3 (0.1-0.6); Monocytes Percent Auto 8.8 % (2.6-8.5); Neutrophils Absolute Auto 5.3 K/mm3 (1.3-6.7); Neutrophils Percent Auto 71.1 % (45.5-73.1); Platelet Count Result 227 k/mm3 (150-375); Red Blood Count 4.78 M/mm3 (4.6-6.20); Red Cell Distribution Width 13.2 % (11.5-14.5); White Blood Count 7.4 K/mm3 (4.5-10.0)
[2023-06-27 10:14] LABS: Alanine Aminotransferase 18 U/L (6-50); Albumin Level 4.3 g/dL (3.5-5.1); Alkaline Phosphatase 69 U/L (38-126); Anion Gap 5 mmol/L (8-16); Aspartate Amino Transferase 37 U/L (17-59); Blood Urea Nitrogen 17 mg/dL (9-20); Calcium 9.1 mg/dL (8.4-10.2); Carbon Dioxide 30 mmol/L (22-30); Chloride 105 mmol/L (98-107); Estimated Glomerular Filt Rate > 60; Glucose 94 mg/dL (65-110); Lactate Dehydrogenase 131 U/L (120-246); Potassium 3.7 mmol/L (3.4-5.0); Sodium 140 mmol/L (137-145)
== END 2023-06-27 08:17 | disposition home or self-care (01) ==
LOC: ANHLAB 08:18
PROVIDERS: Visit Provider Internal Medicine Hematology & Oncology
DX: R59.1 Generalized enlarged lymph nodes (principal)
CPT/HCPCS: 36415; 80053; 83615; 85025; 85055

== ENCOUNTER 2023-07-04 08:05 | Outpatient (CLI) | payer MEDICARE, SELFPAY ==
--- NOTE | ~2023-07-04 | CT_ITS ---
CT of the Abdomen and Pelvis: Indication: Lymphadenopathy Technique: 2.5 mm axial scans were obtained through the abdomen and pelvis following intravenous adm inistration of 100 cc of Omnipaque 350. Dose reduction technique was used on this scan by utilizing a utomated exposure control and iterative reconstruction technique. The dose-length product (DLP) was 5 34.33 mGy-cm. COMPARISON: 04/02/2023 Findings: Scans through the lung bases are unremarkable. The liver, spleen, pancreas, gallbladder, adrenals and kidneys are within normal limits. No evidence of aortic aneurysm. Stable enlarged left para-aortic lymph node (axial image 38). Mildly prominent m esenteric lymph nodes are also essentially stable. No bowel obstruction or bowel wall thickening. There is no evidence to suggest acute appendicitis. Images through the pelvis were performed. Probable urinary bladder wall thickening. Prostate gland an d seminal vesicles are unremarkable. No ascites. Impression: Stable enlarged left paratracheal lymph node and mildly prominent mesenteric lymph nodes, indetermina te. Possible cystitis. Correlate clinically and with urinalysis. Reviewed, dictated and finalized at location . INAL SYSTEM OPERATOR Impression: Stable enlarged left paratracheal lymph node and mildly prominent mesenteric ly mph nodes, indeterminate. Possible cystitis. Correlate clinically and with urinalysis.
== END 2023-07-04 08:06 ==
LOC: MICIMG 08:06
PROVIDERS: PCP Family Medicine; Visit Provider Internal Medicine Hematology & Oncology
DX: R59.1 Generalized enlarged lymph nodes (principal)
CPT/HCPCS: 74177; Q9967

== ENCOUNTER 2023-12-26 08:23 | Outpatient (CLI) | payer MEDICARE, SELFPAY ==
[2023-12-26 08:40] LABS: Basophils Percent Auto 0.2 % (0.2-1.2); Eosinophils Absolute Auto 0.1 K/mm3 (0-0.3); Eosinophils Percent Auto 0.9 % (0-4.4); Hematocrit 45.8 % (42.0-52.0); Hemoglobin 15.5 g/dL (14.0-18.0); Immature Granulocyte Absolute 0.03 K/mm3 (0.00-0.031); Immature Granulocyte Percent A 0.4 % (0-0.5); Lymphocytes Absolute Auto 1.14 K/mm3 (0.9-3.2); Mean Corpuscular HGB Conc 33.8 g/dl (32-36); Mean Corpuscular Hemoglobin 30.8 pg (26-34); Mean Corpuscular Volume 91.1 fl (80-100); Monocytes Absolute Auto 0.6 K/mm3 (0.1-0.6); Monocytes Percent Auto 7.4 % (2.6-8.5); Neutrophils Absolute Auto 6.3 K/mm3 (1.3-6.7); Neutrophils Percent Auto 77.1 % (45.5-73.1); Platelet Count Result 189 k/mm3 (150-375); Red Blood Count 5.03 M/mm3 (4.6-6.20); Red Cell Distribution Width 13.3 % (11.5-14.5); White Blood Count 8.1 K/mm3 (4.5-10.0)
[2023-12-26 10:14] LABS: Alanine Aminotransferase 19 U/L (6-50); Albumin Level 4.8 g/dL (3.5-5.1); Alkaline Phosphatase 84 U/L (38-126); Anion Gap 11 mmol/L (4-12); Aspartate Amino Transferase 30 U/L (17-59); Bilirubin,Total 0.8 mg/dL (0.2-1.3); Blood Urea Nitrogen 17 mg/dL (9-20); Calcium 9.1 mg/dL (8.4-10.2); Carbon Dioxide 29 mmol/L (22-30); Chloride 101 mmol/L (98-107); Estimated Glomerular Filt Rate > 60; Glucose 101 mg/dL (65-110); Lactate Dehydrogenase 115 U/L (120-246); Potassium 4.3 mmol/L (3.4-5.0); Sodium 141 mmol/L (137-145)
[2023-12-26 10:15] LABS: Cholesterol 180 mg/dL (0-200); HDL Direct 52 mg/dL; Triglycerides 167 mg/dL (<150)
[2023-12-26 10:26] LABS: LDL Cholesterol Direct 89 mg/dL
[2023-12-26 10:31] LABS: Free T4 Free Thyroxine 1.02 ng/mL (0.78-2.19)
== END 2023-12-26 08:24 | disposition home or self-care (01) ==
LOC: ANHLAB 08:24
PROVIDERS: Nurse Practitioner; PCP Family Medicine; Visit Provider Internal Medicine Hematology & Oncology
DX: E78.5 Hyperlipidemia, unspecified (principal); R59.1 Generalized enlarged lymph nodes; Z79.899 Other long term (current) drug therapy
CPT/HCPCS: 36415; 80053; 80061; 83615; 84439; 84443; 85025

== ENCOUNTER 2024-04-03 08:40 | Day surgery (SDC) | payer MEDICARE, SELFPAY ==
[2024-02-04 07:35] VITALS: BMI 24.3
[2024-02-18 13:55] VITALS: BMI 24.0
--- NOTE | 2024-02-19 10:14 | SUR.PREOP ---
PT CALLED WITH MULTIPLE QUESTIONS. PT ASKING FOR A PRESCRIPTION FOR AN ANTIANXIETY. PT INFORMED TO CALL HIS PCP FOR ANXIETY. PT ASKING QUESTIONS REGARDING POSITIVE COLOGUARD AND CT SCAN RESULTS FROM JUN 2023. INFORMED PT HE COULD EITHER CALL DR MCELROY'S OFFICE WITH QUESTIONS OR WAIT UNTIL DAY OF PROCEDURE. PT VERBALIZED UNDERSTANDING.
[2024-03-14 13:44] VITALS: BMI 24.0
[2024-04-03 09:29] VITALS: BP 181/75; PULSE 83; RESP 16; TEMP 37.1; O2SAT 100
[2024-04-03] MEDS: LACTATED RINGERS 1,000 ML 150 ML IV CONT (09:45)
--- NOTE | 2024-04-03 10:01 | P.HP_ITS ---
History of Present Illness History of Present Illness Consent: Risks, benefits, and alternatives have been discussed and questions answered. Patient agrees to proceed with procedure. Chief complaint: Positive Cologuard test Narrative: Reyes Pineda is a 78 year old male presents for neoplasia screening colonoscopy. Patient recently found to have positive Cologuard test. Patient reports his current weight appetite and bowel movements are normal. Patient de nies abdominal pain. Family history is noncontributory. Review of Systems Review of Systems: All systems reviewed & are unremarkable except as noted in HPI and below PMFSH Past Medical History Medical History (Updated 03/19/24 @ 16:55 by King Oakley, LUCIE) BMI 23.0-23.9, adult H/O nephrolithotomy with removal of calculi Hyperlipidemia Prostatic hypertrophy Surgical History Surgical History History of bladder surgery bladder stones removed. History of hip surgery left hip Family History Family History Sibling Family history of thyroid disease Patient's sister is in good health Patient's brother is in good health Father Family history of coronary artery disease Family history of cardiovascular disease Mother Patient's mother is Social History Social History (Updated 03/19/24 @ 14:58 by POPPY Bueno) Smoking status: Never smoker Second hand tobacco smoke exposure: Yes Alcohol intake: current Alcohol use details: one per month Substance use: never Substance use type: does not use Do You Feel Safe in your Home?: Yes Lack of Transportation: No Lack of Food: Never True Current Housing: I Have Housing Concerned About Future Housing: No Difficulty Paying Gas/Electric Bills: No Difficulty Paying for Meds: YES Currently Unemployed: No Education: Master's Degree or Higher Difficulty w/ Childcare or Family Care: YES Living arrangements: with family Additional living arrangements comments: SPOUSE Occupation/Education: retired 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 Spiritual care concerns: No Meds Home Medications and Allergies Home Medications Medication Instructions Recorded Confirmed Type finasteride 5 mg tablet See Rx Instructions .Route 07/05/23 04/03/24 Rx .COMPLEX #90 tabs buspirone 10 mg tablet 10 mg PO TID PRN anxiety #90 tabs 02/19/24 04/03/24 Rx lorazepam 1 mg tablet (Ativan) 0.5 mg PO ONCE PRN anxiety #3 tabs 03/20/24 04/03/24 Rx tadalafil 5 mg tablet See Rx Instructions .Route 03/27/24 04/03/24 Rx .COMPLEX #90 tabs Allergies Allergy/AdvReac Type Severity Reaction Status Date / Time No Known Allergies Allergy Verified 04/03/24 09:27 Vital Signs Vital Signs - 24 hr 04/03/24 09:29 Temperature 98.7 F Pulse Rate 83 Respiratory Rate 16 Blood Pressure 181/75 H Pulse Oximetry 100 Oxygen Delivery Room Air Exam Narrative: Physical exam reveals patient to be alert. Vital signs stable. HEENT exam is unremarkable. Patient is anicteric. Lungs are clear to auscultation and to percussion heart is without murmur or extra sounds. Abdomen bowel sounds are present soft nontender with no organomegaly. Digital external rectal exam normal. Assessment and Plan Assessment and plan (1) Positive colorectal cancer screening using Cologuard test: Code(s): R19.5 - Other fecal abnormalities Status: Acute Assessment and Plan: Patient found to have positive Cologuard test. Plan for screening colonoscopy at this time.
--- NOTE | 2024-04-03 10:32 | P.PNAN_ITS ---
Anes - Initial Pre Proc Eval Procedure: Operation Date: 04/03/24 11:00 Proposed Procedures p Diagnostic Colonoscopy - Tien Eller MD Date/Time: 04/03/24 10:32 Surgeon: Tien Eller MD Pre Op Diagnosis: Positive Cologuard test Patient Data Age: 78 Gender: M Height: 1.78 m Weight: 72.1 kg Last Vital Signs Temp 37.1 C 04/03/24 09:29 Pulse 83 04/03/24 09:29 Resp 16 04/03/24 09:29 BP 181/75 H 04/03/24 09:29 Pulse Ox 100 04/03/24 09:29 O2 Del Method Room Air 04/03/24 09:29 Allergies Allergy/AdvReac Type Severity Reaction Status Date / Time No Known Allergies Allergy Verified 04/03/24 09:27 Home Medications Medication Instructions Recorded Confirmed Type finasteride 5 mg tablet See Rx Instructions .Route 07/05/23 04/03/24 Rx .COMPLEX #90 tabs buspirone 10 mg tablet 10 mg PO TID PRN anxiety #90 tabs 02/19/24 04/03/24 Rx lorazepam 1 mg tablet (Ativan) 0.5 mg PO ONCE PRN anxiety #3 tabs 03/20/24 04/03/24 Rx tadalafil 5 mg tablet See Rx Instructions .Route 03/27/24 04/03/24 Rx .COMPLEX #90 tabs Patient hx anesthesia problems: none Family hx anesthesia problems: none Results Review: All pre-operative results and documents have been reviewed as part of the pre- operative evaluation. [facility] Past Medical History Medical History BMI 23.0-23.9, adult H/O nephrolithotomy with removal of calculi Hyperlipidemia Prostatic hypertrophy Surgical History Surgical History History of bladder surgery bladder stones removed. History of hip surgery left hip Family History Family History Sibling Family history of thyroid disease Patient's sister is in good health Patient's brother is in good health Father Family history of coronary artery disease Family history of cardiovascular disease Mother Patient's mother is Social History Social History Smoking status: Never smoker Second hand tobacco smoke exposure: Yes Alcohol intake: current Alcohol use details: one per month Substance use: never Substance use type: does not use Do You Feel Safe in your Home?: Yes Lack of Transportation: No Lack of Food: Never True Current Housing: I Have Housing Concerned About Future Housing: No Difficulty Paying Gas/Electric Bills: No Difficulty Paying for Meds: YES Currently Unemployed: No Education: Master's Degree or Higher Difficulty w/ Childcare or Family Care: YES Living arrangements: with family Additional living arrangements comments: SPOUSE Occupation/Education: retired 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 Informed Consent: The patient's anesthetic plan and its attendant risks and benefits were discussed with the patient/family/POA. Questions were solicited and answers provided to the satisfaction of the patient/family/POA.
--- NOTE | 2024-04-03 11:00 | SUR.OPER ---
resolution clip placed to ascending colon polyp lot [id number], exp
[2024-04-03 11:08] VITALS: BP 111/70; PULSE 74; RESP 16; O2SAT 99
[2024-04-03 11:18] VITALS: BP 114/63; PULSE 72; RESP 15; O2SAT 100
[2024-04-03 11:28] VITALS: BP 124/68; PULSE 66; RESP 15; O2SAT 100
--- NOTE | 2024-04-03 11:40 | WPDANESPN ---
Anes - Prog Note Post-Op Date/Time: 04/03/24 11:40 Cardiovascular status: normal Respiratory status: normal Airway patency: baseline Mental status: baseline Post-Op hydration status: normal Vital Signs: Last Vital Signs Temp 37.1 C 04/03/24 09:29 Pulse 66 04/03/24 11:28 Resp 15 04/03/24 11:28 BP 124/68 04/03/24 11:28 Pulse Ox 100 04/03/24 11:28 O2 Del Method Room Air 04/03/24 11:28 Pain Score (VAS): 0/10 I/O: Intake & Output 04/02/24 04/03/24 04/03/24 23:59 07:59 15:59 Intake Total 600 Balance 600 Patient Feedback: Patient satisfied with anesthetic care.
== END 2024-04-03 11:45 | disposition home or self-care (01) ==
PROVIDERS: PCP Nurse Practitioner; Visit Provider Internal Medicine Gastroenterology
PROC: 0DJD8ZZ Inspection of Lower Intestinal Tract, Via Natural or Artificial Opening Endoscopic (ICD-10-PCS; CPT 45378; principal; 2024-04-03 11:00)
DX: R19.5 Other fecal abnormalities (principal); D12.0 Benign neoplasm of cecum; D37.4 Neoplasm of uncertain behavior of colon; D12.5 Benign neoplasm of sigmoid colon; D12.2 Benign neoplasm of ascending colon
CPT/HCPCS: 45385; 45381

== ENCOUNTER 2024-04-03 13:52 | Outpatient (NON) | payer MEDICARE, SELFPAY | END 2024-04-03 13:53 | disposition home or self-care (01) | LOC: ANHLAB 13:53 | PROVIDERS: PCP Nurse Practitioner; Visit Provider Internal Medicine Gastroenterology | DX: D12.0 Benign neoplasm of cecum (principal); D12.2 Benign neoplasm of ascending colon; D12.5 Benign neoplasm of sigmoid colon | CPT/HCPCS: 88305 ==

== ENCOUNTER 2024-05-20 08:11 | Outpatient (CLI) | payer MEDICARE, SELFPAY ==
--- NOTE | ~2024-05-20 | CT_ITS ---
CTA brain carotid Ordering provider: Danie Birch M.D. History: . H93.A1 - Pulsatile tinnitus, right ear . Comparison: None. Technique: CT angiogram head and neck was performed following timed intravenous injection of contrast . Thin slice axial images and reformatted coronal images were obtained. Three dimensional reformatted images of the brain were also obtained using a [employer] workstation. Radiation reduction technique uti lized. The dose-length product was 1711.98 mGy-cm .100 mL Omnipaque 350 was given IV. FINDINGS: HEAD: --ANTERIOR AND MIDDLE CEREBRAL ARTERIES AND BRANCHES: Normal caliber and contour. --INTERNAL CAROTID ARTERIES: Mild atheromatous disease but no significant stenosis. No occlusion. --BASILAR ARTERY AND BRANCHES: Normal caliber and contour. No atheromatous disease. --POSTERIOR CEREBRAL ARTERIES: Normal caliber and contour --POSTERIOR COMMUNICATING ARTERIES: Not visualized which is probably related to congenital absence or small size. --ANEURYSM: None visualized. No evidence of vascular abnormality seen in the right temporal bone. --BRAIN: Normal. No --BONES AND SUPERFICIAL SOFT TISSUES: Normal. --PARANASAL SINUSES AND MASTOIDS: Normal. NECK: --RIGHT CERVICAL CAROTID SYSTEM: Normal caliber and contour. Percent stenosis per NASCET criteria is 0%. No carotid dissection. Otherwise, no significant atheromatous disease or stenosis of the cervica l carotid system. --LEFT CERVICAL CAROTID SYSTEM: Normal caliber and contour. Percent stenosis per NASCET criteria is 0%. No carotid dissection. Otherwise, no significant atheromatous disease or stenosis of the cervical carotid system. --VERTEBRAL ARTERIES: Normal caliber and contour. --VISUALIZED AORTIC ARCH AND BRANCHING VESSELS: Normal caliber and contour. No significant atheromato us disease. --SOFT TISSUES: Normal. --CERVICAL SPINE: Age appropriate degenerative changes. IMPRESSION: 1. Normal CTA head and neck. Percent stenosis per NASCET criteria is 0%. Reviewed, dictated and finalized at location A. E LIAISON
[2024-05-20 08:35] LABS: Estimated Glomerular Filt Rate > 60
== END 2024-05-20 08:12 | disposition home or self-care (01) ==
PROVIDERS: PCP Nurse Practitioner; Visit Provider Otolaryngology
DX: H93.A1 Pulsatile tinnitus, right ear (principal); J31.0 Chronic rhinitis
CPT/HCPCS: 70496; 70498; Q9967

== ENCOUNTER 2024-10-13 08:39 | Day surgery (SDC) | payer MEDICARE, SELFPAY ==
[2024-09-24 11:47] VITALS: BMI 23.7
--- NOTE | 2024-10-13 07:06 | WPDANESEPPF ---
Anes - Initial Pre Proc Eval Procedure: Operation Date: 10/13/24 10:30 Proposed Procedures p Diagnostic Colonoscopy - Guru Madison MD Date/Time: 10/13/24 07:06 Surgeon: Guru Madison MD Pre Op Diagnosis: History of Colon Poylps Patient Data Age: 79 Gender: M Height: 1.78 m Weight: 75 kg Allergies Allergy/AdvReac Type Severity Reaction Status Date / Time No Known Allergies Allergy Verified 10/13/24 09:17 Home Medications ?Medication ?Instructions ?Recorded ?Confirmed ?Type buspirone 10 mg tablet 10 mg PO TID PRN anxiety #90 tabs 02/19/24 10/13/24 Rx finasteride 5 mg tablet 5 mg PO HS 09/24/24 10/13/24 History tadalafil 5 mg tablet 5 mg PO DAILY 09/24/24 10/13/24 History lorazepam 1 mg tablet 0.5 mg PO DAILY PRN anxiety 10/13/24 10/13/24 History Patient hx anesthesia problems: none Family hx anesthesia problems: none Results Review: All pre-operative results and documents have been reviewed as part of the pre-operative evaluation. [facility] Past Medical History Medical History BMI 23.0-23.9, adult H/O nephrolithotomy with removal of calculi Hyperlipidemia Prostatic hypertrophy Surgical History Surgical History History of bladder surgery bladder stones removed. History of hip surgery left hip Family History Family History Sibling Family history of thyroid disease Patient's sister is in good health Patient's brother is in good health Father Family history of coronary artery disease Family history of cardiovascular disease Mother Patient's mother is Social History Social History Smoking status: Never smoker Second hand tobacco smoke exposure: Yes Alcohol intake: current Drinks per week: 1 Alcohol use details: one per month Substance use: never Substance use type: does not use Do You Feel Safe in your Home?: Yes Lack of Transportation: No Lack of Food: Never True Current Housing: I Have Housing Concerned About Future Housing: No Difficulty Paying Gas/Electric Bills: No Difficulty Paying for Meds: YES Currently Unemployed: No Education: Master's Degree or Higher Difficulty w/ Childcare or Family Care: YES Living arrangements: with family Additional living arrangements comments: SPOUSE Occupation/Education: retired 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 Informed Consent: The patient's anesthetic plan and its attendant risks and benefits were discussed with the patient/family/POA. Questions were solicited and answers provided to the satisfaction of the patient/family/POA.
--- OUTSIDE RECORDS SUMMARY | 2024-10-13 09:15 | XMS_ITS | Encounter Summary ---
Author Organization [facility] Address [address] [place] [address] Care Team Providers Care Light Truck Driver Name Role Phone Unavailable Primary Care Provider Unavailabl e Encounter Details Date Type Department Care Team (Late st Contact Info) Description 08/12/2020 Lab Requisition [facility] [address] [place] [id number] Aryan Pineda MD [address] [place], [place] [id number] Social History Tobacco Use Types Packs/Day Years Used Date Smoking Tobacco: Never Assessed Sex and Gender Information Value Date Recorded Sex Assigned at Not on file Legal Sex Male 3:03 PM CDT Gender Identity Not on file Sexual Orientation Not on file documented as of this encounter Plan of Treatment Not on file documented as of this encounter Procedures Procedure Name Priority Date/Time Associated Diagnosis Comments DERMATOPATHOLOGY Routine 08/10/2020 3:33 AM CDT documented in this encounter Results * DERMATOPATHOLOGY (08/10/2020 3:33 AM CDT) Case Report Dermatopathology Report Case: [id number] Authorizing Provider: Aryan Pineda MD Collected: 08/10/2020 03:33 AM Ordering Location: [facility] Received: 08/12/2020 06:32 AM Pathologist: Sanam Gomes MD Specimens: A) - Skin, right superior forehead B) - Skin, right superior forehead above site A 4:27 PM CDT DERMATOPATHOLOGY LABORATORY Final Diagnosis Specimen A. SKIN, right superior forehead: BASAL CELL CARCINOMA, NODULAR TYPE (C44.319) Specimen B. SKIN, right superior forehead above site A: HYPERPLASTIC (HYPERTROPHIC) ACTINIC KERATOSIS (L57.0) FOLLICULITIS, SUPPURATIVE (L73.8) (see microscopic description) 4:27 PM CDT DERMATOPATHOLOGY LABORATORY at 1627 CDT Clinical History A-B: R/O BCC 4:27 PM CDT DERMATOPATHOLOGY LABORATORY Gross Description Specimen A: Received is one formalin filled container labeled with the patient's name and designated right superior forehead. The specimen consists of a shave biopsy measuring 95r64m7 and 9x8x1 mm. Jar 0. Specimen B: Received is one formalin filled container labeled with the patient's name and designated right superior forehead above site A. The specimen consists of a shave biopsy measuring 6x4x1 mm. Jar 0. 4:27 PM CDT DERMATOPATHOLOGY LABORATORY Microscopic Description Specimen A. SKIN, right superior forehead: Within the dermis there are aggregates of basaloid cells with a high nuclear to cytoplasmic ratio and peripheral palisading. Specimen B. SKIN, right superior forehead above site A: There is hyperkeratosis alternating with parakeratosis. There is epidermal hyperplasia with disorderly maturation of keratinocytes with nuclear pleomorphism confined to the lower half of the epidermis. BerEp4 immunostain does not show significant staining of lesional cells. Sections show associated rupture of the follicular infundibulum, with numerous neutrophils. Additional deeper sections were obtained and reviewed. 4:27 PM CDT DERMATOPATHOLOGY LABORATORY Disclaimer An external and internal positive and negative controls are appropriate for the histochemical, immunohistochemical and immunofluorescence stain(s) in this case (if any), except where stated explicitly. The performance characteristics of the stain(s) cited in this report were developed and its performance characteristic determined by the Dermatopathology Laboratory at [facility], directed by Dr. Glenis Loyd. These tests need not be, and therefore are not, approved by the [place] Food and Drug Administration. The tests are used for clinical purposes. Billing Codes Specimen Charges Stain Charges 77013 29941 1 1 46615 1 4:27 PM CDT DERMATOPATHOLOGY LABORATORY Embedded Images 4:27 PM CDT DERMATOPATHOLOGY LABORATORY Pathology/Cytology TISSUE SPECIMEN FROM SKIN / Unknown 08/10/2020 3:33 AM CDT 08/12/2020 6:32 AM CDT Miscellaneous samples (specimen) TISSUE SPECIMEN FROM SKIN / Unknown 08/10/2020 3:33 AM CDT 08/12/2020 6:32 AM CDT us Aryan Pineda MD LAB - PATHOLOGY/CYTOLOGY ORD ERABLES Final Result DERMATOPATHOLOGY LABORATORY [facility] - Department of Dermatology [facility] [address] [place] [address], [address] [phone] documented in this encounter Visit Diagnoses Not on filedocumented in this encounter
--- OUTSIDE RECORDS SUMMARY | 2024-10-13 09:15 | XMS_ITS | Clinical Summary ---
Author Organization [facility] Adolph Tate Address [address] [address] Care Team Providers Care Principal Examiner Name Role Phone Sergio Ledezma MD Primary Care Provider [phone] Allergies No known active allergies Medications tadalafil (CIALIS) 5 mg tablet Take 5 mg by mouth 1 time daily as needed for Erectile Dysfunction. Active finasteride (PROSCAR) 5 mg tablet Take 5 mg by mouth daily. Active Active Problems No known active problems Encounters Date Type Department Care Team Description 10/07/2024 External Device Data ST[facility] ABSTRACTION Provider, Abstract 10/02/2024 External Device Data [facility] ABSTRACTION Provider, Abstract 10/01/2024 External Device Data [facility] ABSTRACTION Provider, Abstract 09/30/2024 External Device Data [facility] ABSTRACTION Provider, Abstract 07/30/2024 External Device Data [facility] ABSTRACTION Provider, Abstract 07/19/2024 External Device Data [facility] ABSTRACTION Provider, Abstract 07/18/2024 External Device Data [facility] ABSTRACTION Provider, Abstract from Last 3 Months Family History Medical History Relation Name Comments Heart Disease Father Throat Cancer Mother Ovarian Cancer Sister Relation Name Status Comments Brother Alive Daughter Alive Father Mother Sister Alive Son Alive Social History Tobacco Use Types Packs/Day Years Used Date Smoking Tobacco: Never Smokeless Tobacco: Never Tobacco Cessation:Counseling Given: Not Answered Alcohol Use Standard Drinks/Week Comments Not Currently 0 (1 standard drink = 0.6 oz pur e alcohol) Sex and Gender Information Value Date Recorded Sex Assigned at Not on file Legal Sex Male 3:17 PM CDT Gender Identity Not on file Sexual Orientation Not on file Last Filed Vital Signs Vital Sign Reading Time Taken Comments Blood Pressure 139/74 01/08/2024 2:07 PM CDT Pulse 77 01/08/2024 2:07 PM CDT Temperature 36.9 C (98.4 F) 01/08/2024 2:07 PM CDT Respiratory Rate 15 01/08/2024 2:07 PM CDT Oxygen Saturation 97% 01/08/2024 2:07 PM CDT Inhaled Oxygen Concentration - - Weight 75.8 kg (167 lb) 01/08/2024 2:07 PM CDT Height 177.8 cm (5' 10) 08/15/2022 11:34 AM CDT Body Mass Index 23.96 08/15/2022 11:34 AM CDT Plan of Treatment Upcoming Encounters Date Type Department Care Team (Late st Contact Info) Description 01/19/2025 10:15 AM CDT Office Visit [facility] Oncology and Hematology - [place] [address] [facility] [address] [place] [address] Arnol Mazariegos MD [address] [place] [address] Health Maintenance Due Date Last Done Comments DTAP/TDAP/TD VACCINES (1 - Tdap) 10/03/1962 PNEUMOCOCCAL VACCINE 50+ YEARS (1 of 1 - PCV) 10/03/18 94 ZOSTER VACCINE (1 of 2) 10/03/1993 RSV VACCINE (60+ or ) (1 - 1-dose 75+ series) 10/03/2018 INFLUENZA VACCINE (#1) 2023 Insurance [facility] [id number] Care Teams Principal Examiner Relationship Specialty Start Date End Date Sergio Ledezma MD [address] [place] [address] PCP - General Family Practice 01/09/23
--- OUTSIDE RECORDS SUMMARY | 2024-10-13 09:15 | XMS_ITS | Clinical Summary ---
Author Organization [facility] Address [address] [facility] [address] [place] [address] Care Team Providers Care Quotation Checker Name Role Phone Unavailable Primary Care Provider Unavailabl e Source Comments [facility],non-owned Affiliates and Associated Physician Practices is amultiple site organization consisting of ambulatory clinics and hospital sitesin [place], [place], [place] and [place]. This disclosure is being madepursuant to the Care Everywhere program and may not contain all information available regarding this patient. Last updated 18.[facility] Social History Tobacco Use Types Packs/Day Years Used Date Smoking Tobacco: Never Assessed Sex and Gender Information Value Date Recorded Sex Assigned at Not on file Legal Sex Male 3:03 PM CDT Gender Identity Not on file Sexual Orientation Not on file Plan of Treatment Health Maintenance Due Date Last Done Comments DTAP/TDAP/TD VACCINES (1 - Tdap) 10/03/1962 PNEUMOCOCCAL VACCINE 50+ (1 of 1 - PCV) 10/03/1993 ZOSTER VACCINE (1 of 2) 10/03/1993 Respiratory Syncytial Virus (RSV) Vaccine Pt: or over 60 yrs (1 - 1-dose 75+ series) 10/03/2018 COVID-19 VACCINE ( - 2023-2 5 season) 2024 DEPRESSION SCREENING 05/14/2024 MEDICARE AWV CALENDAR YEAR 2024 INFLUENZA VACCINE (Season Ended) 2025 HEPATITIS B VACCINE Aged Out No longe r eligible based on patient's age to complete this topic HIB VACCINE Aged Out No longer eligi ble based on patient's age to complete this topic HPV VACCINE Aged Out No longer eligi ble based on patient's age to complete this topic MENINGOCOCCAL (Group B) VACC INE SHARED DECISION-MAKING Aged Out No longer eligibl e based on patient's age to complete this topic MENINGOCOCCAL GROUPS A/C/Y/W VACCINE Aged Out No longer eligible b ased on patient's age to complete this topic Insurance [facility] MANAGED MEDICARE ADV SELF PAY NO INSURANCE Member Subscriber Plan / Payer (Ef fective for All Dates) Name:Reyes Pineda Member ID:Not on file Relation to Subscriber:Not on file Name:REYES PINEDA Subscriber ID:Not on file (Home) Address: [address] [place] [address] Payer ID:Not on file Group ID:Not on file Type:Self Pay Address: [facility] MANAGED MEDICARE ADV
[2024-10-13 09:19] VITALS: BP 153/74; PULSE 81; RESP 16; TEMP 37.3; O2SAT 100
[2024-10-13] MEDS: LACTATED RINGERS 1,000 ML 150 ML IV CONT (09:24)
--- NOTE | 2024-10-13 10:40 | P.HP_ITS ---
H&P: HPI History of Present Illness Date/Time: 10/13/24 10:40 Chief Complaint: History of colon polyps Narrative: The patient has a history of colonic polyps, the last colonoscopy was 6 months ago, finding 7 polyps, one of them measuring 1.8 cm in the ascending colon, tubulovillous adenoma. Review of Systems Review of Systems: All systems reviewed & are unremarkable except as noted in HPI and below PMFSH Past Medical History Medical History BMI 23.0-23.9, adult H/O nephrolithotomy with removal of calculi Hyperlipidemia Prostatic hypertrophy Surgical History Surgical History History of bladder surgery bladder stones removed. History of hip surgery left hip Family History Family History Sibling Family history of thyroid disease Patient's sister is in good health Patient's brother is in good health Father Family history of coronary artery disease Family history of cardiovascular disease Mother Patient's mother is Social History Social History Smoking status: Never smoker Second hand tobacco smoke exposure: Yes Alcohol intake: current Drinks per week: 1 Alcohol use details: one per month Substance use: never Substance use type: does not use Do You Feel Safe in your Home?: Yes Lack of Transportation: No Lack of Food: Never True Current Housing: I Have Housing Concerned About Future Housing: No Difficulty Paying Gas/Electric Bills: No Difficulty Paying for Meds: YES Currently Unemployed: No Education: Master's Degree or Higher Difficulty w/ Childcare or Family Care: YES Living arrangements: with family Additional living arrangements comments: [place] Occupation/Education: retired 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 Spiritual care concerns: No Meds Home Medications and Allergies Home Medications ?Medication ?Instructions ?Recorded ?Confirmed ?Type buspirone 10 mg tablet 10 mg PO TID PRN anxiety #90 tabs 02/19/24 10/13/24 Rx finasteride 5 mg tablet 5 mg PO HS 09/24/24 10/13/24 History tadalafil 5 mg tablet 5 mg PO DAILY 09/24/24 10/13/24 History lorazepam 1 mg tablet 0.5 mg PO DAILY PRN anxiety 10/13/24 10/13/24 History Allergies Allergy/AdvReac Type Severity Reaction Status Date / Time No Known Allergies Allergy Verified 10/13/24 09:17 Vital Signs Vital Signs - 24 hr 10/13/24 09:19 Temperature 99.2 F Pulse Rate 81 Respiratory Rate 16 Blood Pressure 153/74 H Pulse Oximetry 100 Oxygen Delivery Room Air Exam Const: General: cooperative and healthy appearing Resp: Effort & Inspection: normal respiratory effort and able to speak in complete sentences Auscultation: clear to auscultation bilaterally Cardio: Rate: regular rate Rhythm: regular rhythm GI: Inspection: normal to inspection GI Palp: No No hepatosplenomegaly present Auscultation: normal bowel sounds Rectal Exam: deferred Skin: General skin exam: normal color Psych: Appearance: grossly normal Mental Status: mental status grossly normal Assessment and Plan Assessment and plan (1) History of colonic polyps: Code(s): Z86.0100 - Personal history of colon polyps, unspecified Status: Acute Assessment and Plan: The patient is deemed a good candidate for the procedure. Consent signed. Will proceed.
[2024-10-13] MEDS: SIMETHICONE ORAL SUSPENSION 20 MG/0.3 ML 30 ML BOTTLE 0.6 ML IRRIGATION (10:53)
[2024-10-13 11:07] VITALS: BP 140/70; PULSE 78; RESP 14; O2SAT 98
[2024-10-13 11:17] VITALS: BP 120/67; PULSE 84; RESP 16; O2SAT 100
[2024-10-13 11:27] VITALS: BP 100/85; PULSE 76; RESP 16; O2SAT 100
--- NOTE | 2024-10-13 11:42 | WPDANESPN ---
Anes - Prog Note Post-Op Date/Time: 10/13/24 11:42 Cardiovascular status: normal Respiratory status: normal Airway patency: baseline Mental status: baseline Post-Op hydration status: normal Vital Signs: Last Vital Signs Temp 37.3 C 10/13/24 09:19 Pulse 76 10/13/24 11:27 Resp 16 10/13/24 11:27 BP 100/85 10/13/24 11:27 Pulse Ox 100 10/13/24 11:27 O2 Del Method Room Air 10/13/24 11:27 Pain Score (VAS): 0 I/O: Intake & Output 10/12/24 10/13/24 10/13/24 23:59 07:59 15:59 Intake Total 200 Balance 200 Post-procedural complaints: none Patient Feedback: Patient satisfied with anesthetic care. Other Findings: Patient vital signs back to baseline. Patient denies nausea and vomiting. Patient's pain under control. Patient OK for discharge.
== END 2024-10-13 11:42 | disposition home or self-care (01) ==
PROVIDERS: PCP Nurse Practitioner; Visit Provider Internal Medicine Gastroenterology
PROC: 0DJD8ZZ Inspection of Lower Intestinal Tract, Via Natural or Artificial Opening Endoscopic (ICD-10-PCS; CPT 45378; principal; 2024-10-13 10:30)
DX: Z12.11 Encounter for screening for malignant neoplasm of colon (principal); D12.2 Benign neoplasm of ascending colon; K63.5 Polyp of colon; K64.8 Other hemorrhoids
CPT/HCPCS: 45385

== ENCOUNTER 2024-10-13 10:17 | Outpatient (NON) | payer MEDICARE, SELFPAY ==
--- NOTE | 2024-10-13 | S_PTH ---
PATIENT: Reyes Pineda LOC: [facility] U#:[id number] AGE/SX: 79/M ROOM: RE10/13/[address]: Guru Madison MD : 1945 BED: DIS: 10/13/2024 SPEC #: [id number] RECD: 10/14/24 10:48 STATUS: VARINDER REQ #: [id number] RAY: 10/13/24 00:[address]: Guru Madison DEPT: [facility] Surgical RECD BY: Alexander Ventura ENTERED: 10/14/24 10:49 SP TYPE: Surgical OTHR DR: King Oakley APRN Tissues: A - Colon Polypectomy B - Colon Polypectomy Procedures: Hematoxylin and Eosin Stain Gross and Microscopic Level 4
--- OUTSIDE RECORDS SUMMARY | 2024-10-14 10:37 | XMS_ITS | Encounter Summary ---
Author Organization [facility] Address [address] [facility] [place] [address] Care Team Providers Care Chronometer Tester Name Role Phone Unavailable Primary Care Provider Unavailabl e Encounter Details Date Type Department Care Team (Late st Contact Info) Description 08/12/2020 Lab Requisition [facility] Derm[facility] Lab [address] [place] [id number] Ayran Pineda MD [address] [place], [place] [id number] Social History Tobacco Use Types Packs/Day Years [...] AM CDT) Case Report Dermatopathology Report Case: [id number] Authorizing Provider: Aryan Pineda MD Collected: 08/10/2020 03:33 AM Ordering Location: [facility] Received: 08/12/2020 06:32 AM Pathologist: [...] specimen consists of a shave biopsy measuring [id number] and 9x8x1 mm. Jar 0. Specimen B: [...] characteristic determined by the Dermatopathology Laboratory at [facility], directed by Dr. Glenis Loyd. These tests need not be, and therefore are not, approved by the [place] Food and Drug Administration. The tests are used for clinical purposes. Billing Codes Specimen Charges Stain Charges 19691 45271 1 1 71759 1 4:27 PM CDT DERMATOPATHOLOGY LABORATORY Embedded Images 4:27 PM CDT DERMATOPATHOLOGY LABORATORY Pathology/Cytology TISSUE SPECIMEN FROM SKIN / Unknown 08/10/2020 3:33 AM CDT 08/12/2020 6:32 AM CDT Miscellaneous samples (specimen) TISSUE SPECIMEN FROM SKIN / Unknown 08/10/2020 3:33 AM CDT 08/12/2020 6:32 AM CDT us Aryan Pineda MD LAB - PATHOLOGY/CYTOLOGY ORD ERABLES Final Result DERMATOPATHOLOGY LABORATORY [facility] - Department of Dermatology [facility] [address] [place] [address], [address] [phone] documented in this encounter Visit Diagnoses Not on filedocumented in this encounter
--- OUTSIDE RECORDS SUMMARY | 2024-10-14 10:37 | XMS_ITS | Clinical Summary ---
Author Organization [facility] Adolph Tate Address [address] [place] [address] Care Team Providers Care Principal Security Architect Name Role Phone Sergio Ledezma MD Primary Care Provider [phone] Allergies No known active allergies Medications tadalafil [...] Description 01/19/2025 10:15 AM CDT Office Visit [facility] Oncology and Hematology - [place] [address] [facility] [address] [place] [address] Arnol Mazariegos MD [address] [facility] [address] [place] [address] Health Maintenance Due Date Last Done Comments DTAP/TDAP/TD VACCINES (1 - Tdap) 10/03/1962 PNEUMOCOCCAL VACCINE 50+ YEARS (1 of 1 - PCV) 10/03/18 94 ZOSTER VACCINE (1 of 2) 10/03/1993 RSV VACCINE (60+ or ) (1 - 1-dose 75+ series) 10/03/2018 INFLUENZA VACCINE (#1) 2023 Insurance [facility] [id number] Care Teams Principal Security Architect Relationship Specialty Start Date End Date Sergio Ledezma MD [address] [place] [address] PCP - General Family Practice 01/09/23
--- OUTSIDE RECORDS SUMMARY | 2024-10-14 10:37 | XMS_ITS | Clinical Summary ---
Author Organization [facility] Address [address] [place] [address] Care Team Providers Care Ball Mill Mixer Name Role Phone Unavailable Primary Care Provider Unavailabl e Source Comments [facility] [employer]non-owned Affiliates and Associated Physician Practices is amultiple site organization consisting of ambulatory clinics and hospital sitesin [place], [place], [place] and [place]. This disclosure is being madepursuant to the Care Everywhere program and may not contain all information available regarding this patient. Last updated 18.[facility] [employer] Social History Tobacco Use Types Packs/Day Years [...] patient's age to complete this topic Insurance [facility] MANAGED MEDICARE ADV SELF PAY NO INSURANCE Member Subscriber Plan / Payer (Ef fective for All Dates) Name:Reyes Pineda Member ID:Not on file Relation to Subscriber:Not on file Name:REYES PINEDA Subscriber ID:Not on file (Home) Address: [address] [place] [address] Payer ID:Not on file Group ID:Not on file Type:Self Pay Address: [facility] MANAGED MEDICARE ADV
== END 2024-10-13 10:18 | disposition home or self-care (01) ==
LOC: ANHLAB 10-14 10:18
PROVIDERS: PCP Nurse Practitioner; Visit Provider Internal Medicine Gastroenterology
DX: D12.2 Benign neoplasm of ascending colon (principal); Z86.0100 Personal history of colon polyps, unspecified
CPT/HCPCS: 88305

== ENCOUNTER 2025-03-03 15:37 | Outpatient (CLI) | payer MEDICARE, SELFPAY ==
[2025-03-03 16:13] LABS: Hematocrit 42.4 % (42.0-52.0); Hemoglobin 14.1 g/dL (14.0-18.0); Immature Granulocyte Percent A 0.5 % (0-0.5); Lymphocytes Absolute Auto 1.98 K/mm3 (0.9-3.2); Mean Corpuscular HGB Conc 33.3 g/dl (32-36); Mean Corpuscular Hemoglobin 30.9 pg (26-34); Mean Corpuscular Volume 93.0 fl (80-100); Nucleated Red Blood Cells Absolute Auto 0.000 K/mm3 (0.0-0.012); Nucleated Red Blood Cells Perc 0.0 % (0.0-0.2); Platelet Count Result 216 k/mm3 (150-375); Red Blood Count 4.56 M/mm3 (4.6-6.20); White Blood Count 9.9 K/mm3 (4.5-10.0)
[2025-03-03 16:37] LABS: Alanine Aminotransferase 22 U/L (6-50); Albumin Level 4.5 g/dL (3.5-5.1); Alkaline Phosphatase 59 U/L (38-126); Anion Gap 8 mmol/L (4-12); Aspartate Amino Transferase 38 U/L (17-59); Bilirubin,Total 0.6 mg/dL (0.2-1.3); Blood Urea Nitrogen 20 mg/dL (9-20); Calcium 9.0 mg/dL (8.4-10.2); Carbon Dioxide 29 mmol/L (22-30); Chloride 101 mmol/L (98-107); Cholesterol 194 mg/dL (0-200); Estimated Glomerular Filt Rate > 60; Glucose 125 mg/dL (65-110); HDL Direct 49 mg/dL; Potassium 4.8 mmol/L (3.4-5.0); Sodium 138 mmol/L (137-145); Total Protein 7.5 g/dL (6.3-8.2); Triglycerides 246 mg/dL (<150)
[2025-03-03 16:53] LABS: Free T4 Free Thyroxine 0.99 ng/dL (0.78-2.19)
[2025-03-03 17:15] LABS: Thyroid Stimulating Hormone 1.970 uIU/mL (0.465-4.680)
--- OUTSIDE RECORDS SUMMARY | 2025-03-03 19:25 | XMS_ITS | Clinical Summary ---
Author Organization [facility] Adolph tapia [facility] Address [address] [place] [address] Care Team Providers Care Crime Victim Specialist Name Role Phone Sergio Ledezma MD Primary Care Provider [phone] Allergies No known active allergies Medications tadalafil (CIALIS) 5 mg tablet Take 5 mg by mouth 1 time daily as needed for Erectile Dysfunction. Active finasteride (PROSCAR) 5 mg tablet Take 5 mg by mouth daily. Active Active Problems No known active problems Encounters Date Type Department Care Team Description 01/14/2025 Orders Only [facility] Oncology and Hematology - [place] [address] [facility] [address] [place] [address] Arnol Mazariegos MD Lymphadenopathy (Primary Dx) 12/30/2024 External Device Data [facility] ABSTRACTION Provider, Abstract 12/30/2024 External Device Data [facility] ABSTRACTION Provider, Abstract 12/17/2024 External Device Data [facility] ABSTRACTION Provider, Abstract [...] Care Team (Late st Contact Info) Description 03/12/2025 2:00 PM CDT Office Visit [facility] Oncology and Hematology - [place] [address] [facility] [address] [place] [address] Arnol Mazariegos MD [address] [facility] [address] [place] [address] Health Maintenance Due Date Last Done Comments DTAP/TDAP/TD VACCINES (1 - Tdap) 10/03/1962 PNEUMOCOCCAL VACCINE 50+ YEARS (1 of 1 - PCV) 10/03/18 94 ZOSTER VACCINE (1 of 2) 10/03/1993 RSV VACCINE (60+ or ) (1 - 1-dose 75+ series) 10/03/2018 Medicare Advantage (PR) Prev entative Visit/Annual Wellness Visit 05/14/2024 INFLUENZA VACCINE (#1) [address] [facility] [id number] Care Teams Crime Victim Specialist Relationship Specialty Start Date End Date Sergio Ledezma MD [address] [place] [address] PCP - General Family Practice 01/09/23
--- OUTSIDE RECORDS SUMMARY | 2025-03-03 19:25 | XMS_ITS | Patient Health Record ---
Author Organization [facility] [employer] [facility] Address [address] [place] [address] Care Team Providers Care Dry Wall Nailer Name Role Phone Joe Salinas Unavailable [phone] Reason For Referral No Information Medications Medication SIG (Take, Route, Frequency, Duration) Notes Start Date End Date Status Finasteride 5 MG Tablet Oral 01/25/2023 Active ALPRAZolam 0.5 MG Tablet Oral 01/25/2023 Active busPIRone HCl 10 MG Tablet Oral 01/25/2023 Active TADALAFIL 5 MG TABLET *Reorder from [employer] for eRx and Interaction Alerts* 01/25/2023 Active Social History Social History Additional Details Category Social Info Options Details Migrated Social History Migrated Social History Alcohol Intake: None 01/25/2023,Tobacco Years: Never smoker 09/21/2022 Plan Of Treatment No Information Insurance Providers Payer Name Payer Address Payer Phone Subscriber Number Group Number Insured Name Patient Relationship to Insured Coverage Start Date Coverage End Date [employer] Medicare Replacement/ Advantage - Ppo [address] [address] [place] [address] [id number] ANTHONY PAREKH Self - patient is the insured Medical (General) History Surgical History Surgery Date(Month/Year) Arthrectomy of hip ([id number])
--- OUTSIDE RECORDS SUMMARY | 2025-03-03 19:25 | XMS_ITS | Clinical Summary ---
Author Organization [facility] Address [address] [place] [address] Care Team Providers Care Tool And Machine Maintainer Name Role Phone Unavailable Primary Care Provider Unavailabl e Source Comments [facility] [employer],non-owned Affiliates and Associated Physician Practices is amultiple site organization consisting of ambulatory clinics and hospital sitesin [place], [place], [place] and [place]. This disclosure is being madepursuant to the Care Everywhere program and may not contain all information available regarding this patient. Last updated 18.[facility] [employer] Social History Tobacco Use Types Packs/Day Years [...] yrs (1 - 1-dose 75+ series) 10/03/2018 DEPRESSION SCREENING 05/14/2024 MEDICARE AWV CALENDAR YEAR 2024 COVID-19 VACCINE ( - 2023-2 5 season) 2025 INFLUENZA VACCINE (#1) 2025 HEPATITIS B VACCINE Aged Out No [...] patient's age to complete this topic Insurance [facility] MANAGED MEDICARE ADV [facility] MANAGED MEDICARE ADV SELF PAY NO INSURANCE Member Subscriber Plan / Payer (Ef fective for All Dates) Name:Reyes Parekh Member ID:Not on file Relation to Subscriber:Not on file Name:REYES PAREKH Subscriber ID:Not on file (Home) Address: [address] [place] [address] Payer ID:Not on file Group ID:Not on file Type:Self Pay Address: [facility] MANAGED MEDICARE ADV
--- OUTSIDE RECORDS SUMMARY | 2025-03-03 19:25 | XMS_ITS | Encounter Summary ---
Author Organization [facility] Address [address] [facility] [place] [address] Care Team Providers Care Market Sales Manager Name Role Phone Unavailable Primary Care Provider Unavailabl e Encounter Details Date Type Department Care Team (Late st Contact Info) Description 08/12/2020 Lab Requisition [facility] Derm[facility] Lab [address] [place] [address] Aryan Pineda MD [address] [place], [place] [id number] Social History Tobacco Use Types Packs/Day Years [...] AM CDT) Case Report Dermatopathology Report Case: [id number] Authorizing Provider: Aryan Pineda MD Collected: 08/10/2020 03:33 AM Ordering Location: [facility] Lab Received: 08/12/2020 06:32 AM [...] specimen consists of a shave biopsy measuring [id number] and 9x8x1 mm. Jar 0. Specimen B: [...] characteristic determined by the Dermatopathology Laboratory at [facility], directed by Dr. Glenis Loyd. These tests need not be, and therefore are not, approved by the [place] Food and Drug Administration. The tests are used for clinical purposes. Billing Codes Specimen Charges Stain Charges 89304 82601 1 1 84376 1 4:27 PM CDT DERMATOPATHOLOGY LABORATORY Embedded Images 4:27 PM CDT DERMATOPATHOLOGY LABORATORY Pathology/Cytology TISSUE SPECIMEN FROM SKIN / Unknown 08/10/2020 3:33 AM CDT 08/12/2020 6:32 AM CDT Miscellaneous samples (specimen) TISSUE SPECIMEN FROM SKIN / Unknown 08/10/2020 3:33 AM CDT 08/12/2020 6:32 AM CDT us Aryan Pineda MD LAB - PATHOLOGY/CYTOLOGY ORD ERABLES Final Result DERMATOPATHOLOGY LABORATORY [facility] - Department of Dermatology [facility] [address] [place] [address], [address] [phone] documented in this encounter Visit Diagnoses Not on filedocumented in this encounter
== END 2025-03-03 15:38 | disposition home or self-care (01) ==
LOC: ANHLAB 15:37
PROVIDERS: PCP Nurse Practitioner; Visit Provider Internal Medicine Hematology & Oncology
DX: R59.1 Generalized enlarged lymph nodes (principal); E03.9 Hypothyroidism, unspecified; E78.5 Hyperlipidemia, unspecified
CPT/HCPCS: 36415; 80053; 80061; 84439; 84443; 85025